=== PATIENT | male | born 1995 | race Caucasian/White ===

== ENCOUNTER 2017-09-02 15:28 | Observation (INO) | payer BC ==
[~2017-09-02 15:28] MED LIST: Dexamethasone 20 MG/5 ML VIAL ONE; Glycopyrrolate 0.2 MG/ML 5 ML SYRINGE ONE; Ketorolac Tromethamine 30 MG/ML VIAL ONE; Lidocaine 1% PF 5 ML VIAL ONE; Ondansetron HCl/PF 4 MG/2 ML Vial ONE; PHENYLEPHRINE-NS 100 MCG/ML 10 ML SYRINGE ONE; PROPOFOL 200 MG/20 ML VIAL ONE; Succinylcholine Chloride 20 MG/ML 10 ml SYRINGE FS ONE
[2017-09-02 15:58] LABS: #Basophils 0.1 thou/uL (0.0-0.2); #Eosinphils 0.1 thou/uL (0.0-0.7); #Lymphocytes 1.8 thou/uL (1.20-3.40); #Monocytes 0.9 thou/uL (0.11-0.59); #Neutrophils 10.7 thou/uL (1.40-6.50); %Basophils 0.4 % (0.0-1.0); %Eosinophils 0.5 % (0.0-10.0); %Monocytes 6.4 % (0.0-10.0); %Neutrophils 79.6 % (42.0-75.0); Hemoglobin 15.5 g/dL (14.0-18.0); Mean Corpuscular HGB CONC 35.2 g/dL (32.0-36.0); Mean Corpuscular Hemoglobin 32.8 pg (27.0-31.0); Mean Platelet Volume 7.2 fL (7.4-10.4); Platelet Count 218 thou/uL (130-400); RBC Distribution Width 11.8 % (11.5-14.5); Red Blood Cell (RBC) Count 4.74 mill/uL (4.70-6.10); White Blood Cell (WBC) Count 13.5 thou/uL (4.8-10.8)
[2017-09-02 16:19] LABS: ALT (SGPT) 23 U/L (8-55); AST (SGOT) 13 U/L (5-34); Albumin 4.8 g/dL (3.5-5.0); Alkaline Phosphatase 65 U/L (40-150); Anion Gap 14 mmol/L (10-20); BUN (Urea Nitrogen) 13 mg/dL (8.9-20.6); Bilirubin, Total 0.8 mg/dL (0.2-1.2); Calc. Creatinine Clearance 0 mL/min (70-130); Calcium 10.1 mg/dL (7.8-10.44); Carbon Dioxide 27 mmol/L (22-29); Chloride 103 mmol/L (98-107); Estimated GFR-MDRD Greater than 90; Globulin 3.1 g/dL (2.4-3.5); Glucose 95 mg/dL (70-105); Potassium 4.2 mmol/L (3.5-5.1); Protein, Total 7.9 g/dL (6.0-8.3); Sodium 140 mmol/L (136-145)
[2017-09-02] MEDS ORDERED: Ondansetron HCl/PF 4 MG/2 ML Vial ONE (16:36)
[2017-09-02] MEDS ORDERED: Ketorolac Tromethamine 30 MG/ML VIAL ONE (16:36)
[2017-09-02 16:42] LABS: Bilirubin Negative (Negative); Blood, Urine Negative (Negative); Clarity CLEAR (Clear); Glucose, Urine (Dipstick) Negative (Negative); Leukocyte Negative (Negative); Nitrite Negative (Negative); Protein, Urine (Dipstick) Negative (Neg-Trace); Specific Gravity, Urine 1.025 (1.002-1.036); pH, Urine 7.5 (5.0-9.0)
[2017-09-02] MEDS ORDERED: Meropenem 1 GM in Sterile Water 20 ML SLOW IVP SCH (17:00)
[2017-09-02] MEDS ORDERED: Bupivacaine PF 0.5% 30 ML VIAL ONE (17:10)
[2017-09-02] MEDS ORDERED: Lidocaine 1% w/Epinephrine 1:200K 30 ML VIAL ONE (17:10)
--- NOTE | 2017-09-02 17:19 | CT ---
CT OF THE ABDOMEN AND PELVIS WITHOUT CONTRAST: Comparison: None. History: Patient woke up with sharp abdominal pain this morning. Technique: Multiple continuous axial images were obtained in the abdomen and pelvis without contrast. Coronal reformats were performed. FINDINGS: The liver, gallbladder, kidneys, adrenal glands, spleen and pancreas are unremarkable. There is tubular blind ending structure in the right upper quadrant of the abdomen appearing to emana te from the cecum measuring 10 mm in size. This likely represents an enlarged appendix. There is mild stranding along the base of the appendix. No free air or free fluid are seen in the abdomen or pelvi s. The large and small bowel are unremarkable. No abdominal or pelvic lymphadenopathy are seen. The osseous structures, visualized inferior thorax a nd abdominal wall soft tissues are unremarkable. IMPRESSION: Findings are evidence for acute appendicitis. Dr. Daily notified of the findings at 4:38 p.m. on . POS: [facility]
[2017-09-02] MEDS ORDERED: HYDROmorphone 0.5 MG/0.5 ML SYRINGE ONE (17:24)
[2017-09-02] MEDS ORDERED: Fentanyl 100 MCG/2 ML VIAL ONE (17:24)
--- NOTE | 2017-09-02 17:29 | HP ---
DATE OF ADMISSION: 09/02/2017 HISTORY OF PRESENT ILLNESS: This is a 22-year-old man who presented [facility] with insidious onset periumbilical abdominal pain which started approximately 11:00 a.m. today. Pain was associated with two bouts of small-volume bilious emesis. Pain is rated at 9/10 without radiation and has since settled in the right lower quadrant. The patient denies any fevers or chills. He denies any diarrhea. PAST MEDICAL HISTORY: Denies any previous medical problems. PAST SURGICAL HISTORY: The patient denies any previous surgeries. SOCIAL HISTORY: Patient is single, lives independently. 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 He admits to occasional intake of ethanol in moderate amounts. He d enies any cigarette smoking or illicit drug abuse. FAMILY HISTORY: Significant for type 1 diabetes mellitus in his younger brother. His father fr om complications of heart disease in his 40s. His mother was diagnosed with and successfully treated for colon cancer in her 40s as well. He denies any family history of essential hypertension. CURRENT MEDICATIONS: None. ALLERGIES: Patient denies any known drug allergies. REVIEW OF SYSTEMS: Ten point review of systems is essentially unremarkable except for as stated in p ast medical history and chief complaint. PHYSICAL EXAMINATION: GENERAL: This reveals a 22-year-old normally-developed man who is otherwise coherent and interactive and appears stated age. The patient is alert and oriented x3, appears to be in no acute distress at the time of my evaluation. VITAL SIGNS: Include blood pressure 122/59, pulse 73, respiratory rate is 18, temperature 98.4 degre es Fahrenheit. Oxygen saturation is 96% on room air. HEENT: Reveals normocephalic and atraumatic. Pupils are equal, round, and reactive to light and acc ommodation. Extraocular muscles are intact bilaterally. No sclerae icterus is present. Oral mucosa is pink and moist. No lesions are noted. NECK: Supple. No palpable lymphadenopathy or thyromegaly present. HEART: Reveals regular rate and rhythm, no murmurs or gallops auscultated. LUNGS: Clear to auscultation bilaterally. His breathing is regular and unlabored. ABDOMEN: Soft with right lower quadrant tenderness at McBurney's. He has a positive Rovsing sign. Liver and spleen are otherwise nonpalpable below costal margins. EXTREMITIES: Reveals 2+ radial and pedal pulses bilaterally. He has no ankle edema present. NEUROLOGICAL: Examination reveals intact cranial nerves II through XII with no focal neurologic defi cits present. IMAGING: I have personally reviewed the CT scan of the abdomen and pelvis, which reveals dilated calvin endix at 10 mm in diameter with fat stranding. There is no pneumoperitoneum to suggest perforation. No free peritoneal fluid is noted. LABORATORY FINDINGS: Today includes CBC with 13,500 white blood cells, hemoglobin 15.5, hematocrit i s 44.1, platelet count is 218,000. Metabolic profile: Sodium 140, potassium 4.2, chloride is 103, b icarbonate 27, BUN 13, creatinine 0.98, glucose 95, total bilirubin 0.8, AST and ALT normal at 13 and 23 respectively. IMPRESSION: Acute appendicitis. RECOMMENDATIONS AND PLAN: Laparoscopic appendectomy. I have advised the patient of the above findin gs and plan including the risk and benefits of the proposed surgery. Risks include, but not limited to bleeding, infection, injury to bowel and surrounding structures. This information was given to the patient in the presence of his nurse. I did discuss also with the patient's mother at his request via telephone conversation. The patient and his mother both indicated understanding of information I have provided today. I answ ered all their questions. The patient has given consent for this admission and surgical intervention .
[2017-09-02] MEDS ORDERED: Ondansetron HCl/PF 4 MG/2 ML Vial IVP PRN (18:18)
[2017-09-02] MEDS ORDERED: Promethazine HCl 25 MG/ML VIAL IM PRN (18:18)
[2017-09-02] MEDS ORDERED: Meperidine HCl/PF 25 MG/ML VIAL SLOW IVP PRN (18:18)
[2017-09-02] MEDS ORDERED: HYDROmorphone 2 MG/ML VIAL SLOW IVP PRN (18:18)
[2017-09-02] MEDS ORDERED: Promethazine HCl 25 MG/ML VIAL SLOW IVP PRN (18:18)
--- NOTE | 2017-09-02 22:14 | OP ---
DATE OF OPERATION: 09/02/2017 PREOPERATIVE DIAGNOSIS: Acute appendicitis. POSTOPERATIVE DIAGNOSIS: Acute appendicitis. OPERATIONS PERFORMED: Laparoscopic appendectomy. SURGEON: Dr. Ezequiel Garcia. ANESTHESIA: General endotracheal. ESTIMATED BLOOD LOSS: 20 mL. FLUIDS GIVEN: 1100 mL crystalloids. SPONGE AND INSTRUMENT COUNT: Certified as correct x2. COMPLICATIONS: None apparent at that time of operation. INDICATIONS FOR OPERATION: A 22-year-old man presented with periumbilical abdominal pain, which sinc e settled to the right lower quadrant where it persisted. Clinical and radiographic examination was consistent with acute appendicitis for which patient was brought to the operating room for laparoscop ic appendectomy. Findings are consistent with suppurative, but nonperforated appendix in the usual anatomic location. DESCRIPTION OF PROCEDURE: Informed consent obtained from the patient who was brought to the operatin g room and placed in supine position. Following general anesthesia, a Lebron catheter was inserted an d placed bedside drain. Abdomen is sterilely prepped and draped in the usual fashion. Skin below th e umbilicus was infiltrated with 0.25% Marcaine with epinephrine. A small curvilinear infraumbilical incision is made using an 11 scalpel. Umbilical stalk was grasped with Rafa and elevated. Veress needle was inserted through the incision and placed in the peritoneal cavity through which the abdom en was insufflated with 3 liters of CO2 gas. Intraabdominal pressure was noted at 1 mmHg. Following abdominal insufflation, Veress needle was removed, 5 mm trocar introduced using a Visiport under lap aroscopy. Laparoscopy confirmed proper placement of the port, no injuries to underlying structures. An additional laparoscopy reveals the right lower quadrant partially encased by omental adhesions. Under direct laparoscopy, a 5 mm suprapubic and 12 mm left lower quadrant ports were placed after the overlying skin was infiltrated with 0.25% Marcaine with epinephrine and appropriate incisions made. The patient was placed in a Trendelenburg position, rotated to his left. I introduced Prestige gras per through the left lower quadrant port site using this to bluntly take down omental adhesions to re veal a suppurative appendix in the usual anatomic location in the right lower quadrant. Endo Sarah forceps was then introduced through the suprapubic port site grasping the appendix which was elevate d. I used the [place] dissector to create a rent through the mesoappendix at the base. Using Endo- VALENCIA with a blue load, the appendix was divided at appendicocecal junction. The Endo-VALENCIA with a white load was then used to divide the mesoappendix at the base. Good hemostasis noted in place. The sup purative appendix is delivered of the abdominal cavity using an EndoCatch. Operative site was irriga yary with saline, noting good hemostasis. Finding no other pathology, laparoscopy was terminated. Fa scia of the left lower quadrant port was closed using 0 Vicryl suture and Endo closure device under l aparoscopy. Abdomen was desufflated. Next, all ports and instruments removed and accounted for. Th e skin incisions were closed using 4-0 Monocryl suture in subcuticular fashion. Dermabond was applie d over the incisions. The patient tolerated the operation without any apparent complication and was returned to the recover y room in satisfactory condition.
== END 2017-09-02 19:45 | disposition home or self-care (01) ==
LOC: ERS 15:28 → SURG B 16:42
PROVIDERS: ADMIT Surgery; ATTEND Surgery
PROC: 0DTJ4ZZ Resection of Appendix, Percutaneous Endoscopic Approach (ICD-10-PCS; principal; 2017-09-02)
DX: K35.80 Unspecified acute appendicitis (principal); Z80.0 Family history of malignant neoplasm of digestive organs; Z83.3 Family history of diabetes mellitus; Z82.49 Family history of ischemic heart disease and other diseases of the circulatory system
CPT/HCPCS: 74176; 80053; 81003; 85025; 88304; 96361; 96374; 96375; A4216; J1100; J1170; J1885; J2001; J2185; J2405; J2704; J3010; S0020